=== PATIENT | male | born 1985 | race Caucasian/White ===

== ENCOUNTER 2018-07-30 16:41 | Emergency (ER) | payer OTHER ==
[~2018-07-30] VITALS: Ht 190.5 cm; Wt 63.5 kg
[2018-07-30 17:24] LABS: ABSOLUTE LYMPHOCYTES 0.8 thou/uL (0.8-5.3); ABSOLUTE MONOCYTES 0.3 thou/uL (0.0-1.2); ABSOLUTE NEUTROPHILS 4.6 thou/uL (1.6-8.1); BASOPHILS 0.4 %; EOSINOPHILS 0.1 %; HEMATOCRIT 42.8 % (42.0-52.0); HEMOGLOBIN 14.8 gm/dL (14.0-18.0); LYMPHOCYTES 14.5 %; MCH 34.1 pg (26.0-34.0); MCHC 34.6 g/dL (28.0-37.0); MCV 98.6 fL (80.0-100.0); MONOCYTES 4.9 %; MPV 7.4 fl. (7.2-11.1); NUCLEATED RBCS 0 /100WBC; PLATELET COUNT* 176 thou/uL (150-400); POLYS 80.1 %; RBC 4.34 mil/uL (4.50-6.00); RDW-CV 12.5 % (10.5-14.5); WBC 5.8 thou/uL (4.0-11.0)
[2018-07-30 17:37] LABS: PROTIME 10.4 Seconds (9.20-11.50)
[2018-07-30 17:41] LABS: ALBUMIN 3.9 g/dL (3.4-5.0); ALKALINE PHOSPHATASE 101 U/L (46-116); ANION GAP 7 mmol/L (7-16); BUN 9 mg/dL (7-18); CALCIUM 8.9 mg/dL (8.5-10.1); CHLORIDE 104 mmol/L (98-107); CO2 31 mmol/L (21-32); CREATININE 0.9 mg/dL (0.6-1.3); GLUCOSE 101 mg/dL (70-99); MAGNESIUM 2.1 mg/dL (1.8-2.4); POTASSIUM 4.3 mmol/L (3.5-5.1); SGOT 26 U/L (15-37); SGPT 37 U/L (30-65); SODIUM 142 mmol/L (136-145); TOTAL BILIRUBIN 0.5 mg/dL (<0.1-1.0); TOTAL PROTEIN 6.9 g/dL (6.4-8.2); TROPONIN-I LEVEL <0.06 ng/mL (<0.06)
[2018-07-30 18:13] LABS: URINE BILIRUBIN NEGATIVE (Negative); URINE BLOOD 2+ (Negative); URINE CLARITY CLEAR; URINE COLOR YELLOW; URINE GLUCOSE-RANDOM NEGATIVE (Negative); URINE KETONES NEGATIVE (Negative); URINE LEUKOCYTES NEGATIVE (Negative); URINE NITRITE NEGATIVE (Negative); URINE PROTEIN NEGATIVE (Negative); URINE UROBILINOGEN 0.2 E.U./dl (0.2-1.0)
[2018-07-30 18:25] LABS: BACTERIA None Seen /HPF (None Seen); CASTS None Seen /LPF (None Seen); CRYSTALS None Seen /LPF (None Seen); SQUAMOUS 0-3 Few /LPF (0-3); URINE RBC 0-2 Rare /HPF (0-2); URINE WBC None Seen /HPF (0-5)
[2018-07-30 18:55] VITALS: BP 109/71
--- NOTE | 2018-07-31 17:38 | EKG ---
[place] [address] ELECTROCARDIOGRAM REPORT Name: AYE CUNNINGHAM Mireille Room: [facility]#: [id number] Admission: 07/30/18 Attend Phys: Discharge: 07/30/18 Date of : 89 Report #: [id number] THIS REPORT FOR: //name// [facility] ED Test Date: 2018-07-30 Test Time: 17:51:02 Pat Name: AYE CUNNINGHAM Department: Room: Gender: Collateral Analyst: Lew RÍOS : 1985 Requested By: Paola Mei Order Number: [id number] MD: Mo Andres Measurements Intervals [place] Rate: 57 P: 76 SC: 139 QRS: 71 QRSD: 99 T: 56 QT: 381 QTc: 371 Interpretive Statements Sinus rhythm RSR' in V1 or V2, right VCD or RVH ST elev, probable normal early repol pattern No previous ECG available for comparison Electronically Signed On 07-31-2018 17:38:02 CDT by Mo Andres [email or web address] <ELECTRONICALLY SIGNED> By: Mo Andres MD, [facility] 07/31/18 1738 [id number] 50 Mo Andres MD, FACC /EPI
== END 2018-07-30 18:56 | disposition home or self-care (01) ==
LOC: M.ERS 16:41
PROVIDERS: Physician Assistant
DX: S09.8XXA Other specified injuries of head, initial encounter (principal); R55 Syncope and collapse; R31.29 Other microscopic hematuria; F41.9 Anxiety disorder, unspecified; W22.8XXA Striking against or struck by other objects, initial encounter; Y92.89 Other specified places as the place of occurrence of the external cause; Y93.89 Activity, other specified; Y99.8 Other external cause status

== ENCOUNTER 2018-08-13 21:17 | Emergency (ER) | payer OTHER ==
[~2018-08-13] VITALS: Ht 188 cm; Wt 63.5 kg
[2018-08-13] MEDS ORDERED: NORCO 5-325 TA1 EACH PO (21:39)
[2018-08-13] MEDS ORDERED: NAPROSYN500 MG PO (21:39)
[2018-08-13 21:48] VITALS: BP 125/63
== END 2018-08-13 21:48 | disposition home or self-care (01) ==
LOC: M.ERS 21:17
DX: S46.201A Unspecified injury of muscle, fascia and tendon of other parts of biceps, right arm, initial encounter (principal); F41.9 Anxiety disorder, unspecified; X58.XXXA Exposure to other specified factors, initial encounter; Y93.89 Activity, other specified; Y92.89 Other specified places as the place of occurrence of the external cause; Y99.8 Other external cause status